=== PATIENT | female | born 1955 | race Caucasian/White ===

== ENCOUNTER → 2016-12-31 | Day surgery (SDC) | payer OTHER ==
[~2016-12-31] VITALS: Ht 172.7 cm; Wt 73.0 kg
[~2016-12-31] MED LIST: 0.9% Sodium Chloride 1,000 ML IV SCH; DIPH25CA6 PO; LEVO112C2 PO; LORA10CA PO; Sodium Chloride LOK Flush 10 mL Syringe IV PRN; fentaNYL-PF 50 mCg/mL 2 mL Inj IVPUSH PRN; fentaNYL-PF 50 mCg/mL 2 mL Inj ONE
[2016-12-31 10:08] VITALS: BP 142/74; PULSE 90; RESP 16; O2SAT 100
--- NOTE | 2016-12-31 11:22 | PCM.ENDCOL ---
Colonoscopy Date of Service: Dec 31, 2016 Physician Ad Ruggiero MD Pre Procedure Diagnosis: Screening family history of colon cancer Post Procedure Dx & Findings: Polyp hemorrhoids Procedure Colonoscopy PROCEDURE IN DETAIL: Prep fair prep Withdrawal time 11 minutes After unremarkable rectal examination the Olympus video colonoscope was inserted patient's anal canal and was advanced to cecum. Landmarks were identified including the ileocecal valve and appendiceal orifice. Scope was withdrawn systematically. Visualized colonic mucosa showed healthy shiny mucosa with normal healthy-appearing vasculature. In the descending colon there was a 6-7 mm flat polyp which was removed completely using cold snare. In the rectum retroflexion was done which showed hemorrhoids. Anal canal was inspected carefully on the way out and hemorrhoids noted. Impression Family history colon cancer Polyp times 1 status post complete removal Fair prep Hemorrhoids Recommendation Repeat colonoscopy in 2 years with 2 days of clears and 2 week of low fiber diet Presedation Assessment Risks and Benefits Informed consent was obtained from the patient after all risks and benefits including but not limited to drug reaction, infection, pain, bleeding, perforation, as well as alternatives were discussed. Patient monitoring Continuous pulse oximetry, cardiac monitoring, blood pressure monitoring, IV access, and oxygen at 2L per nasal cannula. Periprocedural Fentanyl: Fentanyl 125mcg Incrementally Midazolam: Midazolam 5mg Incrementally Complications There were no periprocedural complications identified. Post Procedure Plan Post Procedure Recommendations 1. Restrict activities today. 2. Resume normal activities in the morning. 3. Resume medications. 4. Patient informed of normal post procedure side effects as bloating, drowsiness, blood streaking in the stool. 5. average risk CRCS. If colon polyps come back as: -Hyperplastic- can repeat colonoscopy in 10 years -Tubular adenoma- repeat colonoscopy in 5 years -Tubulovillous/villous adenoma- repeat colonoscopy in 3 years -If any dysplasia- return to clinic as soon as possible 6. Please don't hesitate to call me with any questions. Ad Ruggiero MD Dec 31, 2016 11:22
[2016-12-31 11:24] VITALS: BP 114/67; PULSE 70; RESP 12; O2SAT 98
[2016-12-31 11:33] VITALS: BP 112/60; PULSE 73; RESP 12; O2SAT 99
[2016-12-31 11:38] VITALS: BP 113/66; PULSE 71; RESP 16; O2SAT 99
--- NOTE | 2017-01-01 13:49 | PATH ---
SURGICAL PATHOLOGY Attending Physician:Ad Ruggiero M.D. CASE STATUS: Signed Out PATIENT NAME: LING WHEAT PID: [id number] : 1955 DATE COLLECTED:12/31/2016 19:36 SPECIMEN: Colon, Polyp CLINICAL HISTORY: 1). DESCENDING POLYP X 1 FINAL DIAGNOSIS: Descending Colon Polyp, Polypectomy: Serrated polyp, favor sessile serrated adenoma. ICD10: D12.4 GROSS DESCRIPTION: The specimen is received in one formalin filled container labeled with the patient's name, sublabeled "descending polyp x1" and consists of 3 portions of tissue which aggregate to 1.0 x 0.4 x 0.4 CM. The specimen is entirely submitted in one cassette. 12/31/2016DC ICD-9 CODES: CPT CODES: 1: 01275 Electronically Signed Out Coleman Boone MD, Ph.D. [facility] [address], [place] [address] Technical component performed at [facility], [facility] [address], [place], [address]
== END | disposition home or self-care (01) ==
LOC: END 00:41
PROVIDERS: ATTEND Internal Medicine
DX: Z12.11 Encounter for screening for malignant neoplasm of colon (principal); Z80.0 Family history of malignant neoplasm of digestive organs; D12.4 Benign neoplasm of descending colon; K64.9 Unspecified hemorrhoids; J30.2 Other seasonal allergic rhinitis
CPT/HCPCS: 45385; 99153; G0500; J2250; J3010; J7030